=== PATIENT | female | born 1985 | race Caucasian/White ===

== ENCOUNTER → 2023-07-22 | Emergency (ER) | payer BC ==
[~2023-07-22] VITALS: Ht 180.3 cm; Wt 104.3 kg
== END | disposition left against medical advice (07) ==
LOC: ER 10:53
DX: S00.93XA Contusion of unspecified part of head, initial encounter (principal); W05.1XXA Fall from non-moving nonmotorized scooter, initial encounter; Y93.89 Activity, other specified; Y92.89 Other specified places as the place of occurrence of the external cause; Y99.9 Unspecified external cause status; M25.512 Pain in left shoulder; M79.632 Pain in left forearm; M25.522 Pain in left elbow; Z88.2 Allergy status to sulfonamides